=== PATIENT | female | born 1945 | race Caucasian/White ===

== ENCOUNTER 2017-01-04 07:34 | Day surgery (SDC) | payer MEDICARE, BC ==
[~2017-01-04 07:34] MED LIST: BUPIVACAINE HCL 0.75% INJ/PF (7.5 MG/1 ML) 10 ML SDV OD PRN; KETOROLAC TROMETHAMINE 0.45% 4 DROP/0.4 ML DROPERETTE OD PRN; LIDOCAINE 4% INJ/PF (40 MG/ML) 5 ML AMPUL OD PRN; TETRACAINE HCL 0.5% OPH SOLN 0.6 ML DROPERETTE OD PRN
[2017-01-04] MEDS ORDERED: PHENYLEPHRINE/KETOROLAC 1%-0.3% 4 ML VIAL ONE (07:41)
[2017-01-04] MEDS ORDERED: CHONDR SU A NA/HYALUR INTRAOC KIT (SURGICARE) ONE (07:41)
[2017-01-04] MEDS: BESIFLOXACIN HCL 0.6% OPH SUSP 5 ML BOTTLE OD PRN ×4 (07:54→08:57)
[2017-01-04] MEDS: TROPICAMIDE 1% OPH SOLN 3 ML OD PRN ×3 (07:54→08:14)
[2017-01-04] MEDS: CYCLOPENTOLATE 0.2%/PHENYLEPHRINE 1% OPH SOLN 2 ML OD PRN ×3 (07:54→08:14)
[2017-01-04] MEDS: LIDOCAINE 3.5% OPH GEL/PF 1 ML/TUBE OD PRN ×2 (07:55→08:14)
[2017-01-04] MEDS ORDERED: MIDAZOLAM 2 MG/2 ML INJ ONE ×2 (08:18)
--- NOTE | 2017-01-04 09:19 | [facility] DISCHARGE SUMMARY E ---
[facility] Discharge Summary NAME: GOGO GRADY AGE: 71Y ADMITTED: 01/04/2017 DISCHARGED: 01/04/2017 PREOPERATIVE DIAGNOSIS: CATARACT, RIGHT EYE POSTOPERATIVE DIAGNOSIS: CATARACT, RIGHT EYE. HOSPITAL COURSE: Patient is a 71-year-old lady who underwent uneventful cataract extraction with ReSTOR intraocular lens implant, right eye, on 01/04/2017. DISPOSITION: She will be discharged to home. She was instructed to resume preoperative medications; take Tylenol as needed for discomfort; to keep her eye shielded; to use Besivance, Durezol, and Ilevro at 3:00 p.m. and 8:00 p.m.; and to follow up in my office in 1 day. DICTATING PHYSICIAN: TANIYA DALEY M.D. [id number] PHY#: [id number] ID: [id number] JOB#: [id number] ACCT: [id number] cc:TANIYA DALEY M.D. >
--- NOTE | 2017-01-04 09:19 | [facility] OPERATIVE REPORT E ---
[facility] Operative Report NAME: GOGO GRADY AGE: 71Y DATE OF SURGERY: 01/04/2017 ROOM: PREOPERATIVE DIAGNOSIS: CATARACT, RIGHT EYE POSTOPERATIVE DIAGNOSIS: CATARACT, RIGHT EYE. PROCEDURE PERFORMED: Phacoemulsification with ReSTOR intraocular lens implant, right eye. SURGEON: TANIYA DALEY M.D. ANESTHESIA: Topical W/MAC. INDICATIONS FOR SURGERY: Difficulty reading road signs and driving at night due to glare. Best corrected visual acuity 20/60, with glare. DESCRIPTION OF PROCEDURE: The patient was brought to the operating room and placed on the operative table. Following tetracaine drops, topical anesthesia was administered. This consisted of instrument wipe pledgets soaked in a solution of 4% Xylocaine mixed with 0.75% Marcaine in a 1:2 ratio. A 2 x 1 cm pledget was placed in the superior fornix. A 1 x 1 cm pledget was placed in the inferior fornix. The eye was patched shut for 5 minutes. The patch was removed. The eye was sterilely prepped and draped in the usual manner. Lid speculum was placed in the eye. The pledgets were removed, 4-0 black silk sutures were placed around the superior and the inferior rectus muscles to be used as traction. A conjunctival peritomy was made at the 10 o'clock position. Hemostasis was obtained with bipolar cautery. A posterior limbal groove was created using a crescent knife and dissected anteriorly towards the cornea. A sharp point blade was used to create a paracentesis site at the 2 o'clock position. A 2.4 mm keratome was used to enter the anterior chamber through the groove. Viscoelastic was injected into the anterior chamber. An anterior capsulotomy was performed using Utrata forceps in a capsulorrhexis fashion. Hydrodissection and hydrodelineation were performed. Phacoemulsification was performed in pgknti-qhr-hyqnrdn technique. A total of 6.48 CDE seconds total phaco time was used. Following this, the I/A unit was used to remove residual cortex. Viscoelastic was injected into the capsular bag. ReSTOR intraocular lens Model [id number], 24.5 diopter, serial number [id number] was placed in the capsular bag. The I/A unit was used to removed residual viscoelastic. The wound was seen to be watertight under high and low pressure, and no sutures were placed. The intraocular lens was well centered. The pressure was adjusted in the eye to normal pressure. The 4-0 black silk sutures and lid speculum were removed. The eye was shielded after Besivance drops were placed. The patient tolerated the procedure well and was sent to the recovery room in good condition. DICTATING PHYSICIAN: TANIYA DALEY M.D. [id number] PHY#: [id number] ID: [id number] JOB#: [id number] ACCT: [id number] cc:TANIYA DALEY M.D. >
== END 2017-01-04 09:45 | disposition home or self-care (01) ==
LOC: SC 07:34
PROVIDERS: ATTEND Ophthalmology
PROC: 08RJ3JZ Replacement of Right Lens with Synthetic Substitute, Percutaneous Approach (ICD-10-PCS; principal; 2017-01-04 08:30)
DX: H25.813 Combined forms of age-related cataract, bilateral (principal); H04.123 Dry eye syndrome of bilateral lacrimal glands; M19.90 Unspecified osteoarthritis, unspecified site; Z79.1 Long term (current) use of non-steroidal anti-inflammatories (NSAID); Z79.82 Long term (current) use of aspirin; Z79.899 Other long term (current) drug therapy
CPT/HCPCS: 66984; V2788; J2250; J3490 ×3; A9270 ×2; C9447; 142

== ENCOUNTER 2017-02-01 09:31 | Day surgery (SDC) | payer MEDICARE, BC ==
[~2017-02-01 09:31] MED LIST changes: -BUPIVACAINE HCL 0.75% INJ/PF (7.5 MG/1 ML) 10 ML SDV OD PRN; -KETOROLAC TROMETHAMINE 0.45% 4 DROP/0.4 ML DROPERETTE OD PRN; +KETOROLAC TROMETHAMINE 0.45% 4 DROP/0.4 ML DROPERETTE OS PRN; -LIDOCAINE 4% INJ/PF (40 MG/ML) 5 ML AMPUL OD PRN; -TETRACAINE HCL 0.5% OPH SOLN 0.6 ML DROPERETTE OD PRN
[2017-02-01] MEDS: CYCLOPENTOLATE 0.2%/PHENYLEPHRINE 1% OPH SOLN 2 ML OS PRN ×3 (10:55→11:33)
[2017-02-01] MEDS: TROPICAMIDE 1% OPH SOLN 3 ML OS PRN ×3 (10:55→11:33)
[2017-02-01] MEDS: BESIFLOXACIN HCL 0.6% OPH SUSP 5 ML BOTTLE OS PRN ×4 (10:56→12:26)
[2017-02-01] MEDS: LIDOCAINE 3.5% OPH GEL/PF 1 ML/TUBE OS PRN ×2 (10:57→11:34)
[2017-02-01] MEDS ORDERED: FENTANYL CITRATE INJ/PF 100 MCG/2 ML AMPUL ONE (11:23)
[2017-02-01] MEDS ORDERED: MIDAZOLAM 2 MG/2 ML INJ ONE ×2 (11:23→11:38)
[2017-02-01] MEDS ORDERED: ONDANSETRON HCL INJ/PF 4 MG/2 ML SDV ONE (11:32)
[2017-02-01] MEDS: LIDOCAINE 4% INJ/PF (40 MG/ML) 5 ML AMPUL OS PRN ×2 (11:48)
[2017-02-01] MEDS: BUPIVACAINE HCL 0.75% INJ/PF (7.5 MG/1 ML) 10 ML SDV OS PRN ×2 (11:48)
[2017-02-01] MEDS: PHENYLEPHRINE/KETOROLAC 1%-0.3% 4 ML VIAL ONE ×2 (11:59)
[2017-02-01] MEDS: LIDOCAINE 1% INJ-PF (10 MG/ML) 30 ML SDV ONE ×2 (12:09)
[2017-02-01] MEDS: CHONDR SU A NA/HYALUR INTRAOC KIT (SURGICARE) ONE ×2 (12:15)
--- NOTE | 2017-02-01 12:37 | [facility] DISCHARGE SUMMARY E ---
[facility] Discharge Summary NAME: GOGO GRADY AGE: 71Y ADMITTED: 02/01/2017 DISCHARGED: 02/01/2017 PREOPERATIVE DIAGNOSIS: Cataract, left eye. POSTOPERATIVE DIAGNOSIS: Cataract, left eye. HOSPITAL COURSE: The patient is a 71-year-old lady who underwent uneventful cataract surgery with ReSTOR intraocular lens implant, left eye, on 02/01/2017. She will be discharged to home. She was instructed to resume preoperative medications, take Tylenol as needed for discomfort, to keep her eye shielded, to use Besivance, Durezol, and Ilevro at 3 p.m. and 8 p.m., and to followup in my office in 1 day. DICTATING PHYSICIAN: TANIYA DALEY M.D. [id number] PHY#: [id number] ID: [id number] JOB#: [id number] ACCT: [id number] cc:TANIYA DALEY M.D. >
--- NOTE | 2017-02-01 12:38 | [facility] OPERATIVE REPORT E ---
[facility] Operative Report NAME: GOGO GRADY AGE: 71Y DATE OF SURGERY: 02/01/2017 ROOM: PREOPERATIVE DIAGNOSIS: Cataract, left eye. POSTOPERATIVE DIAGNOSIS: Cataract, left eye. PROCEDURE PERFORMED: Phacoemulsification with ReSTOR intraocular lens implant, left eye. SURGEON: Nora Daley MD ANESTHESIA: Topical with MAC. INDICATIONS FOR SURGERY: Optical imbalance after cataract surgery on the right eye. Best corrected visual acuity 20/30. PROCEDURE: The patient was brought to the operating room and placed on the operative table. Following tetracaine drops, topical anesthesia was administered. This consisted of instrument wipe pledgets soaked in a solution of 4% Xylocaine mixed with 0.75% Marcaine in a 1:2 ratio. A 2 x 1 cm pledget was placed in the superior fornix. A 1 x 1 cm pledget was placed in the inferior fornix. The eye was patched shut for 5 minutes. The patch was removed. The eye was sterilely prepped and draped in the usual manner. Lid speculum was placed in the eye. The pledgets were removed. 4-0 black silk sutures were placed around the superior and the inferior rectus muscles to be used as traction. A conjunctival peritomy was made at the 10 o'clock position. Hemostasis was obtained with bipolar cautery. A posterior limbal groove was created using a crescent knife and dissected anteriorly towards the cornea. A sharp point blade was used to create a paracentesis site at the 2 o'clock position. A 2.4 mm keratome was used to enter the anterior chamber through the groove. Viscoelastic was injected into the anterior chamber. An anterior capsulotomy was performed using Utrata forceps in a capsulorrhexis fashion. Hydrodissection and hydrodelineation were performed. Phacoemulsification was performed in zcvjpq-ydy-tnzlkht technique. Total phaco time 1.33 minutes. Following this, the I/A unit was used to remove residual cortex. Viscoelastic was injected into the capsular bag. Intraocular lens model [id number], 24.5 diopters, serial number [id number] was placed in the capsular bag. The I/A unit was used to remove residual viscoelastic. The wound was seen to be watertight under high and low pressure, and no sutures were placed. The intraocular lens was well centered. The pressure was adjusted in the eye to normal pressure. The 4-0 black silk sutures and lid speculum were removed. The eye was shielded after Besivance drops were placed. The patient tolerated the procedure well and was sent to the recovery room in good condition. DICTATING PHYSICIAN: NORA DALEY M.D. [id number] PHY#: [id number] ID: [id number] JOB#: [id number] ACCT: [id number] cc:NORA DALEY M.D. >
== END 2017-02-01 13:06 | disposition home or self-care (01) ==
LOC: SC 09:31
PROVIDERS: ATTEND Ophthalmology
PROC: 08RK3JZ Replacement of Left Lens with Synthetic Substitute, Percutaneous Approach (ICD-10-PCS; principal; 2017-02-01 10:45)
DX: H25.812 Combined forms of age-related cataract, left eye (principal); Z96.1 Presence of intraocular lens; Z98.41 Cataract extraction status, right eye; J30.2 Other seasonal allergic rhinitis; M19.90 Unspecified osteoarthritis, unspecified site; Z88.2 Allergy status to sulfonamides; Z88.5 Allergy status to narcotic agent; Z79.82 Long term (current) use of aspirin; Z79.899 Other long term (current) drug therapy; Z79.1 Long term (current) use of non-steroidal anti-inflammatories (NSAID)
CPT/HCPCS: 66984; V2788; J2250; J3490 ×4; A9270 ×2; J3010; J2405; C9447; 142

== ENCOUNTER → 2017-04-15 | Outpatient (CLI) | payer MEDICARE, BC ==
--- NOTE | 2017-04-15 15:57 | WOMENS IMAGING REPORT ---
EXAM DESCRIPTION: BILAT SCREENING MAMMO W/CAD COMPLETED DATE/TIME: 04/15/2017 3:32 pm REASON FOR STUDY: ROUTINE SCREENING; Z12.31 Z12.31 ENCNTR SCREEN MAMMOGRAM FOR MALIGNANT NEOPLASM O F MELISA COMPARISON: 2014, 2015 TECHNIQUE: Standard craniocaudal and mediolateral oblique views of each breast recorded using [employer] acquisition. LIMITATIONS: None. FINDINGS: No masses, calcifications or architectural distortion. No areas of suspicion. Read with the assistance of CAD. .[facility] - R2 Cenova Version 1.3 .[facility] - R2 Cenova Version 1.3 .[facility] - R2 Cenova Version 2.4 .[facility] R2 Cenova Version 2.4 .[facility] - R2 Director Of Institutional Sales Version 9.2 IMPRESSION: NORMAL MAMMOGRAM. BIRADS 1. BREAST DENSITY: b. There are scattered areas of fibroglandular density. BIRAD: 1 NEGATIVE RECOMMENDATION: ROUTINE SCREENING COMMENT: The patient has been notified of the results by letter per SA requirements. Additional no tification policies are in place for contacting patient with suspicious or incomplete findings. Quality ID #[id number]: The [employer] recommends an annual screening mammogram for women aged 40 years or over. This facility utilizes a reminder system to ensure that all patients receive reminder letters, and/or direct phone calls for appointments. This includes reminders for routine scr eening mammograms, diagnostic mammograms, or other Breast Imaging Interventions when appropriate. Th is patient will be placed in the appropriate reminder system. The [employer] (ACR) has developed recommendations for screening MRI of the breast s in certain patient populations, to be used in conjunction with mammography. Breast MRI surveillanc e may be appropriate for women with more than 20% lifetime risk of developing breast cancer as deter mined by genetic testing, significant family history of the disease, or history of mantle radiation f or Hodgkins Disease. ACR Practice Guidelines 2008. TECHNICAL DOCUMENTATION: FINDING NUMBER: (1) ASSESSMENT: (1) JOB ID: [id number] [employer]- All Rights Reserved
== END ==
LOC: WI 15:15
PROVIDERS: ATTEND Internal Medicine Geriatric Medicine
DX: Z12.31 Encounter for screening mammogram for malignant neoplasm of breast (principal)
CPT/HCPCS: 77067

== ENCOUNTER 2017-11-16 19:38 | Emergency (ER) | payer MEDICARE, BC ==
[2017-11-16] MEDS ORDERED: METHYLPREDNISOLONE INJ 125 MG/2 ML SDV IV ONE (19:57)
[2017-11-16] MEDS ORDERED: FAMOTIDINE INJ/PF 20 MG/2 ML SDV IV ONE (19:57)
[2017-11-16] MEDS ORDERED: DIPHENHYDRAMINE HCL 50 MG/ML VIAL IV ONE (19:57)
[2017-11-16] MEDS ORDERED: NORMAL SALINE 1000 ML 1,000 ML IV ONE (20:01)
[2017-11-16] MEDS ORDERED: PREDNISONE 20 MG TABLET PO ONE (21:38)
--- NOTE | 2017-11-16 21:38 | ER Document Report ---
ED General - General Chief Complaint: Allergic Reaction Stated Complaint: POSSIBLE ALLERGIC REACTION Time Seen by Provider: 11/16/17 19:57 TRAVEL OUTSIDE OF THE [place] IN LAST 30 DAYS: No - HPI Patient complains to provider of: Acute allergic reaction Notes: Patient states she was stung by a wasp approximately 11/02/1931 later developed hives and itching therefore came to the ER for further evaluation. 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 Patient states she is to have EpiPen's are these have she threw these away many years ago. Upon my evaluation patient does have diffuse hives is speaking in complete sentences no signs of any airway compromise at this time. - Related Data Allergies/Adverse Reactions: Sulfa (Sulfonamide Antibiotics) Allergy (Severe, Verified 01/24/17 08:55) Respiratory distress codeine Allergy (Intermediate, Verified 01/24/17 08:55) SEVERE NAUSEA morphine [Morphine] Adverse Reaction (Severe, Verified 01/24/17 08:55) N&V x 3 days Past Medical History - Social History Smoking Status: Unknown if Ever Smoked Family History: None - Past Medical History Cardiac Medical History: Denies: Hx Coronary Artery Disease, Hx Heart Attack, Hx Hypertension - LOW PRESSURE,BORDERLINE NORMAL Pulmonary Medical History: Reports: Hx Pneumonia - as young girl x 2 Denies: Hx Asthma, Hx Bronchitis, Hx COPD Neurological Medical History: Denies: Hx Cerebrovascular Accident, Hx Seizures GI Medical History: Denies: Hx Hepatitis, Hx Hiatal Hernia, Hx Ulcer Musculoskeltal Medical History: Reports Hx Arthritis - Rt shoulder, hands, Lt hip Infectious Medical History: Denies: Hx Hepatitis Past Surgical History: Reports: Hx Hysterectomy. Denies: Hx Mastectomy, Hx Open Heart Surgery, Hx Pacemaker - Immunizations Hx Diphtheria, Pertussis, Tetanus Vaccination: Yes - 2006 Review of Systems - Review of Systems Constitutional: Other - Acute allergic reaction EENT: No symptoms reported Cardiovascular: No symptoms reported Respiratory: No symptoms reported Gastrointestinal: No symptoms reported Genitourinary: No symptoms reported Female Genitourinary: No symptoms reported Musculoskeletal: No symptoms reported Skin: No symptoms reported Hematologic/Lymphatic: No symptoms reported Neurological/Psychological: No symptoms reported Physical Exam - Vital signs Vitals: Resp Pulse Ox 14 95 11/16/17 20:07 11/16/17 20:07 Interpretation: Normal - General General appearance: Appears well, Alert - HEENT Head: Normocephalic, Atraumatic, Other - Slight swelling with high formation to the left orbit superior Eyes: Normal Conjunctiva: Normal Cornea: Normal Pupils: PERRL Mouth/Lips: Normal Pharynx: Normal. No: Uvular edema Neck: Normal - Respiratory Respiratory status: No respiratory distress Chest status: Nontender Breath sounds: Normal Chest palpation: Normal - Cardiovascular Rhythm: Regular Heart sounds: Normal auscultation Murmur: No - Abdominal Inspection: Normal Distension: No distension Bowel sounds: Normal Tenderness: Nontender Organomegaly: No organomegaly - Back Back: Normal, Nontender - Extremities General upper extremity: Normal inspection, Nontender, Normal color, Normal ROM , Normal temperature General lower extremity: Normal inspection, Nontender, Normal color, Normal ROM , Normal temperature, Normal weight bearing. No: Inga's sign - Neurological Neuro grossly intact: Yes Cognition: Normal Orientation: AAOx4 Delmar Coma Scale Eye Opening: Spontaneous Amrit Coma Scale Verbal: Oriented Amrit Coma Scale Motor: Obeys Commands Delmar Coma Scale Total: 15 Speech: Normal Motor strength normal: LUE, RUE, LLE, RLE Sensory: Normal - Psychological Associated symptoms: Normal affect, Normal mood - Skin Skin Temperature: Warm Skin Moisture: Dry Skin Color: Other - Diffuse hives on the abdomen on the extremities Patient with evidence of a stinging to the right forearm dorsal side no signs of retained stinger Course - Re-evaluation Re-evalutation: 11/16/17 23:34 Patient was given Benadryl Pepcid and Solu-Medrol with resolution of the hives and approximately 3045 minutes after drug administration. Patient was monitored in the ER for a little bit every 3 hours. No recurrence of the hives or any itching. Patient will be discharged home with instructions to use an EpiPen this she developed a severe allergic reaction prescription for steroids and instructions on how to use Benadryl last evaluation patient again had no hives no signs of uvula edema no signs of Any swelling posterior pharynx. Hives and swelling to the face had resolved on the left orbit. Lungs are clear no shortness of breath 11/16/17 23:35 - Vital Signs Vital signs: Temp Pulse Resp BP Pulse Ox 97.7 F 14 116/55 L 96 11/16/17 23:02 11/16/17 23:02 11/16/17 23:02 11/16/17 23:02 Critical Care Note - Critical Care Note Total time excluding time spent on procedures (mins): 35 Comments: Management and monitoring of acute allergic reaction Discharge - Discharge Clinical Impression: Allergic reaction Qualifiers: Encounter type: initial encounter Qualified Code(s): T78.40XA - Allergy, unspecified, initial encounter Condition: Good Disposition: HOME, SELF-CARE Instructions: Acute Allergic Reaction ([facility]), Use of Diphenhydramine Additional Instructions: Your presentation today was consistent with an acute allergic reaction to the insect that stung U. Please continue to take Benadryl 25-50 mg tablets every 4- 6 hours for any itching or hives that develop. Please take steroids as prescribed. I will also give you a prescription for 2 EpiPen's. These are to be On your person and one in your house these are to be used for allergic reaction causing severe shortness of breath if you use the EpiPen's you must seek medical attention Prescriptions: Epinephrine [Epipen 2-Alex] 0.3 mg IM ONCE PRN #1 pkg PRN Reason: Prednisone [Deltasone 20 mg Tablet] 2 tab PO DAILY 5 Days tablet Referrals: KISHAN BERGER MD [Primary Care Provider] - Follow up in 1 week
[2017-11-16 23:03] VITALS: BP 116/55
== END 2017-11-16 23:11 | disposition home or self-care (01) ==
LOC: ER 19:38
DX: T63.461A Toxic effect of venom of wasps, accidental (unintentional), initial encounter (principal); L50.9 Urticaria, unspecified; Z88.2 Allergy status to sulfonamides; Z88.5 Allergy status to narcotic agent
CPT/HCPCS: 99283; J1200; J2930; A9270; J7030; S0028; J7512

== ENCOUNTER → 2018-04-14 | Outpatient (CLI) | payer MEDICARE, BC ==
--- NOTE | 2018-04-14 11:12 | RADIOLOGY REPORT (SQ) ---
EXAM DESCRIPTION: U/S ABDOMEN COMPLETE W/DOPPLER COMPLETED DATE/TIME: 04/14/2018 9:13 am REASON FOR STUDY: R94.5 ABNORMAL RESULTS OF LIVER FUNCTION STUDIES R94.5 ABNORMAL RESULTS OF LIVER FUNCTION STUDIES COMPARISON: None. TECHNIQUE: Dynamic and static grayscale images acquired of the abdomen and recorded on PACS. Additio nal selected color Doppler and spectral images recorded. LIMITATIONS: None. FINDINGS: PANCREAS: No masses. Visualized pancreatic duct normal caliber. LIVER: There appears to be some degree fatty infiltration of the liver with areas of focal fatty spar ing. LIVER VASCULATURE: Normal directional flow of the main portal vein and hepatic veins. GALLBLADDER: There is a single large gallstone. No wall thickening or pericholecystic fluid. ULTRASOUND-DETECTED MERCADO'S SIGN: Negative. INTRAHEPATIC DUCTS AND COMMON DUCT: CBD and intrahepatic ducts normal caliber. No filling defects. INFERIOR VENA CAVA: Patent. AORTA: No aneurysm. RIGHT KIDNEY: Normal size, 9.7 cm. Normal echogenicity. No solid or suspicious masses. No hydr onephrosis. No calcifications. LEFT KIDNEY: Normal size, 10.3 cm. Normal echogenicity. No solid or suspicious masses. No hydr onephrosis. No calcifications. SPLEEN: Normal size, 9 cm. No solid masses. PERITONEAL AND PLEURAL SPACES: No ascites or effusions. OTHER: No other significant finding. IMPRESSION: Fatty infiltration of the liver. Cholelithiasis. TECHNICAL DOCUMENTATION: JOB ID: [id number] [employer]- All Rights Reserved Reading location - IP/workstation name: [email or web address]
== END ==
LOC: RAD 08:10
PROVIDERS: ATTEND Internal Medicine Geriatric Medicine
DX: R94.5 Abnormal results of liver function studies (principal)
CPT/HCPCS: 76700; 93976

== ENCOUNTER → 2018-04-24 | Outpatient (CLI) | payer MEDICARE, BC ==
--- NOTE | 2018-04-24 16:52 | WOMENS IMAGING REPORT ---
EXAM DESCRIPTION: 3D SCREENING MAMMO BILAT COMPLETED DATE/TIME: 04/24/2018 3:04 pm REASON FOR STUDY: BILATERAL SCREENING MAMMO 3D/Z12.31 Z12.31 ENCNTR SCREEN MAMMOGRAM FOR MALIGNANT NEOPLASM OF MELISA COMPARISON: Multiple since 2014 TECHNIQUE: Standard craniocaudal and mediolateral oblique views of each breast recorded using digita l acquisition and breast tomosynthesis. LIMITATIONS: None. FINDINGS: No masses, calcifications or architectural distortion. No areas of suspicion. Read with the assistance of CAD. .[facility] - R2 Cenova Version 1.3 .[facility] Imaging - R2 Cenova Version 1.3 .[facility] - R2 Cenova Version 2.4 .[facility] [place] R2 Cenova Version 2.4 .[facility] - R2 Marketing Administrative Assistant Version 9.2 IMPRESSION: NORMAL MAMMOGRAM. BIRADS 1. BREAST DENSITY: b. There are scattered areas of fibroglandular density. BIRAD: 1 NEGATIVE RECOMMENDATION: ROUTINE SCREENING Please continue yearly bilateral screening mammography/tomosynthesis in March 2019 COMMENT: The patient has been notified of the results by letter per SA requirements. Additional no tification policies are in place for contacting patient with suspicious or incomplete findings. Quality ID #225: The [employer] recommends an annual screening mammogram for women aged 40 years or over. This facility utilizes a reminder system to ensure that all patients receive reminder letters, and/or direct phone calls for appointments. This includes reminders for routine scr eening mammograms, diagnostic mammograms, or other Breast Imaging Interventions when appropriate. Th is patient will be placed in the appropriate reminder system. The [place] [employer] (ACR) has developed recommendations for screening MRI of the breast s in certain patient populations, to be used in conjunction with mammography. Breast MRI surveillanc e may be appropriate for women with more than 20% lifetime risk of developing breast cancer as deter mined by genetic testing, significant family history of the disease, or history of mantle radiation f or Hodgkins Disease. ACR Practice Guidelines 2008. DBT Technology DBT is a type of tomographic mammography. With conventional mammography, overlapping breast tissue ma y make lesions difficult to detect, even with good compression. DBT uses an x-ray tube that rotates a round the breast, taking images at different angles. These images are then combined to create thin sl ices of the breast that the radiologist can view as a 3D reconstruction. The Next Safety unit can perform full-field digital mammograms (2D imaging); or DBT (3D imaging); or both, in a combination mode that quickly performs both the mammogram and the tomosynthesis scan while the breast is still compressed. PQRS 6045F: Fluoroscopic imaging is not utilized for breast tomosynthesis. TECHNICAL DOCUMENTATION: FINDING NUMBER: (1) ASSESSMENT: (1) JOB ID: [id number] [employer]- All Rights Reserved Reading location - IP/workstation name: [email or web address]-2
== END ==
LOC: WI 14:41
PROVIDERS: ATTEND Internal Medicine Geriatric Medicine
DX: Z12.31 Encounter for screening mammogram for malignant neoplasm of breast (principal)
CPT/HCPCS: 77063; 77067

== ENCOUNTER → 2019-05-02 | Outpatient (CLI) | payer MEDICARE, BC | LOC: WI 14:55 | PROVIDERS: ATTEND Internal Medicine Geriatric Medicine | DX: Z12.31 Encounter for screening mammogram for malignant neoplasm of breast (principal) | CPT/HCPCS: 77063; 77067 ==

== ENCOUNTER → 2019-05-10 | Outpatient (CLI) | payer MEDICARE, BC ==
--- NOTE | 2019-05-10 10:48 | WOMENS IMAGING REPORT ---
EXAM DESCRIPTION: U/S BREAST UNILAT LIMITED COMPLETED DATE/TIME: 05/10/2019 10:33 am REASON FOR STUDY: R92.2 R92.2 INCONCLUSIVE MAMMOGRAM COMPARISON: Mammogram dated 05/02/2019 and 04/24/2018. TECHNIQUE: Real-time and static grayscale imaging performed of the right breast targeted to the area of clinical/mammographic concern. Selected color Doppler images recorded. LIMITATIONS: None. FINDINGS: MASS: In the 9 o'clock location there is a circumscribed solid hypoechoic mass measuring 5 x 7 x 8 mm. Central calcifications. No distal shadowing. No vascularity. Images of the axilla de monstrate a few benign-appearing lymph nodes with no worrisome characteristics. OTHER: No other significant finding. IMPRESSION: Solid mass in the lateral right breast. Biopsy should be considered. BIRAD: 4 Suspicious. Biopsy should be performed in the absence of clinical contra-indication. RECOMMENDATION: RECOMMENDED FOLLOW-UP: The mass is amenable to ultrasound-guided biopsy. COMMENT: The [place] [employer] (ACR) has developed recommendations for screening MRI of the breasts in certain patient populations, to be used in conjunction with mammography. Breast MRI s urveillance may be appropriate for women with more than 20% lifetime risk of developing breast cancer as determined by genetic testing, significant family history of the disease, or history of mantle r adiation for Hodgkins Disease. ACR Practice Guidelines 2008. TECHNICAL DOCUMENTATION: JOB ID: [id number] [employer]- All Rights Reserved Reading location - IP/workstation name: [email or web address]
== END ==
LOC: WI 10:33
PROVIDERS: ATTEND Internal Medicine Geriatric Medicine
DX: R92.2 Inconclusive mammogram (principal)
CPT/HCPCS: 76642

== ENCOUNTER → 2020-05-21 | Outpatient (CLI) | payer MEDICARE, BC ==
--- NOTE | 2020-05-21 12:13 | WOMENS IMAGING REPORT ---
EXAM DESCRIPTION: BILAT SCREENING MAMMO W/CAD IMAGES COMPLETED DATE/TIME: 05/21/2020 10:40 am REASON FOR STUDY: Z12.31 ENCNTR SCREEN MAMMOGRAM FOR MALIGNANT NEOPLASM OF BREAST Z12.31 ENCNTR SCR EEN MAMMOGRAM FOR MALIGNANT NEOPLASM OF MELISA COMPARISON: 05/02/2019 and 04/24/2018. EXAM PARAMETERS: Standard craniocaudal and mediolateral oblique views of each breast recorded using digital acquisition. Read with the assistance of CAD. .[facility] - [employer] Version 9.2 LIMITATIONS: None. FINDINGS: No suspicious masses, suspicious calcifications or architectural distortion. No areas of c oncern. IMPRESSION: NEGATIVE MAMMOGRAM. BIRADS 1 BREAST DENSITY: b. There are scattered areas of fibroglandular density. BIRAD: ASSESSMENT: 1 NEGATIVE RECOMMENDATION: ROUTINE SCREENING COMMENT: The patient has been notified of the results by letter per MQSA requirements. Additional no tification policies are in place for contacting patient with suspicious or incomplete findings. Quality ID #[id number]: The [place] recommends an annual screening mammogram for women aged 40 years or over. This facility utilizes a reminder system to ensure that all patients receive reminder letters, and/or direct phone calls for appointments. This includes reminders for routine scr eening mammograms, diagnostic mammograms, or other Breast Imaging Interventions when appropriate. Th is patient will be placed in the appropriate reminder system. TECHNICAL DOCUMENTATION: FINDING NUMBER: (1) ASSESSMENT: (1) JOB ID: [id number] [employer]- All Rights Reserved Reading location - IP/workstation name: [email or web address]
== END ==
LOC: WI 10:20
PROVIDERS: ATTEND Nurse Practitioner Adult Health
DX: Z12.31 Encounter for screening mammogram for malignant neoplasm of breast (principal)
CPT/HCPCS: 77067